=== PATIENT | male | born 1965 | race Caucasian/White ===

== ENCOUNTER 2024-07-16 13:03 | Observation (INO) | payer OTHER ==
[2024-07-16] MEDS ORDERED: LORazepam 2 MG/ML INJ IV PRN ×3 (13:05)
[2024-07-16] MEDS ORDERED: LORazepam 1 MG TAB PO PRN (13:05)
[2024-07-16] MEDS ORDERED: LORazepam 0.5 MG TAB PO PRN (13:05)
--- NOTE | 2024-07-16 13:07 | ED ---
Alcohol HPI - General Stated Complaint: ETOH Time Seen by Provider: 07/16/24 13:05 Source: RN notes reviewed, old records reviewed Mode of arrival: EMS Limitations: altered mental status - History of Present Illness Initial Comments: This is a 58-year-old male with severe intoxication. Patient is brought in by EMS as he was found unresponsive MD Complaint: alcohol intoxication Last Drink: just [employer] -: minute(s) Previous Visits for Alcohol Intoxication?: Yes Recent Trauma: Yes Associated Symptoms: denies other symptoms Treatments Prior to Arrival: none Chronic Alcohol Use: Yes - Related Data Home Medications Medication Instructions Recorded Confirmed Atorvastatin [Lipitor] 10 mg PO DAILY 07/16/24 07/16/24 FLUoxetine HCL [PROzac] 40 mg PO DAILY 07/16/24 07/16/24 Multivitamin W/Folic Acid 400mcg 1 tab PO DAILY 07/16/24 07/16/24 Previous Rx's Medication Instructions Recorded Folic Acid 1 mg PO DAILY tab 07/18/24 HYDROcodone/APAP 5-325MG [[place] 1 each PO Q6HR PRN #6 tab 07/18/24 5-325] INSULIN ASPART (NovoLOG) [NovoLOG 0 unit SQ ACHS each 07/18/24 (formulary)] INSULIN ASPART (NovoLOG) [NovoLOG 10 unit SQ AC-TID each 07/18/24 (formulary)] LORazepam [Ativan] 1 mg PO Q4HR PRN #6 tab 07/18/24 Multivitamins, Thera [Multivitamin 1 each PO DAILY tab 07/18/24 (formulary)] chlordiazePOXIDE HCl [Librium] 10 mg PO TID #11 cap 07/18/24 Allergies Allergy/AdvReac Type Severity Reaction Status Date / Time No Known Allergies Allergy Verified 07/16/24 16:10 Review of Systems ROS Statement: Those systems with pertinent positive or pertinent negative responses have been documented in the HPI. ROS Other: All systems not noted in ROS Statement are negative. Past Medical History - Past Family History Father History Unknown: Yes General Exam General appearance: alert, in no apparent distress, appears intoxicated Head exam: Present: atraumatic, normocephalic, normal inspection Eye exam: Present: normal appearance, PERRL, EOMI. Absent: scleral icterus, conjunctival injection, periorbital swelling ENT exam: Present: normal exam, mucous membranes moist Neck exam: Present: normal inspection. Absent: tenderness, meningismus, lymphadenopathy Respiratory exam: Present: normal lung sounds bilaterally. Absent: respiratory distress, wheezes, rales, rhonchi, stridor Cardiovascular Exam: Present: regular rate, normal rhythm, normal heart sounds. Absent: systolic murmur, diastolic murmur, rubs, gallop, clicks GI/Abdominal exam: Present: soft, normal bowel sounds. Absent: distended, tenderness, guarding, rebound, rigid Extremities exam: Present: normal inspection, full ROM, normal capillary refill. Absent: tenderness, pedal edema, joint swelling, calf tenderness Back exam: Present: normal inspection Neurological exam: Present: alert, oriented X3, CN II-XII intact Psychiatric exam: Present: normal affect, normal mood Skin exam: Present: warm, dry, intact, normal color. Absent: rash Course Vital Signs 07/16/24 07/16/24 07/16/24 13:10 15:48 17:24 Temperature 98 F 98 F Pulse Rate 69 70 78 Respiratory 18 18 18 Rate Blood Pressure 110/72 101/65 134/78 O2 Sat by Pulse 95 95 94 L Oximetry - Reevaluation(s) Reevaluation #1: 07/16/24 13:07 Medical records reviewed Reevaluation #2: 07/16/24 14:18 No change in symptoms here in the ER Reevaluation #3: 07/16/24 14:18 Patient informed of results and questions answered Reevaluation #4: Was pt. sent in by a medical professional or institution (, PA, ADMISSION NURSE, urgent care, hospital, or correction...) When possible be specific @ -no Did you speak to anyone other than the patient for history (EMS, parent, family, police, friend...)? What history was obtained from this source @ -no Did you review nursing and triage notes (agree or disagree)? Why? @ -agree Are old charts reviewed (outside hosp., previous admission, EMS record, old EKG, old radiological studies, urgent care reports/EKG's, correction records)? Report findings @ -yes Differential Diagnosis (chest pain, altered mental status, abdominal pain women, abdominal pain men, vaginal bleeding, weakness, fever, dyspnea, syncope, headache, dizziness, GI bleed, back pain, seizure, CVA, palpatations, mental health, musculoskeletal)? @ -prior EKG interpreted by me (3pts min.). @ -no X-rays interpreted by me (1pt min.). @ -no CT interpreted by me (1pt min.). @ -Yes negative for acute disease U/S interpreted by me (1pt. min.). @ -no What testing was considered but not performed or refused? (CT, X-rays, U/S, labs)? Why? @ -none What meds were considered but not given or refused? Why? @ -none Did you discuss the management of the patient with other professionals (professionals i.e. Dr., PA, ADMISSION NURSE, lab, RT, psych nurse, social worker school, egg packer, teacher, transportation security officer, case reviewer)? Give summary @ -no Was smoking cessation discussed for >3mins.? @ -no Was critical care preformed (if so, how long)? @ -no Were there social determinants of health that impacted care today? How? (Homelessness, low income, unemployed, alcoholism, drug addiction, transportation, low edu. Level, literacy, decrease access to med. care, fdc, rehab)? @ -none Was there de-escalation of care discussed even if they declined (Discuss DNR or withdrawal of care, Hospice)? DNR status @ -no What co-morbidities impacted this encounter? (DM, HTN, Smoking, COPD, CAD, Cancer, CVA, ARF, Chemo, Hep., AIDS, mental health diagnosis, sleep apnea, morbid obesity)? @ -none Was patient admitted / discharged? Hospital course, mention meds given and route, prescriptions, significant lab abnormalities, going to OR and other pertinent info. @ - 58 male will be admitted for significant and severe alcohol intoxication Admitted Undiagnosed new problem with uncertain prognosis? @ -no Drug Therapy requiring intensive monitoring for toxicity (Heparin, Nitro, Insulin, Cardizem)? @ -no Were any procedures done? @ -no Diagnosis/symptom? @ -Alcohol intoxication Acute, or Chronic, or Acute on Chronic? @ -Acute Uncomplicated (without systemic symptoms) or Complicated (systemic symptoms)? @ -Complicated Side effects of treatment? @ -no Exacerbation, Progression, or Severe Exacerbation? @ -exacerbation Poses a threat to life or bodily function? How? (Chest pain, USA, AR, pneumonia, PE, COPD, DKA, ARF, appy, cholecystitis, CVA, Diverticulitis, Homicidal, Suicidal, threat to staff... and all critical care pts) @ -yes severe intoxication Reevaluation #5: Differential Altered Mental Status: Hypoglycemia, DKA, hypercapnia, ETOH, overdose, CO poisoning, trauma, myxedema coma, HTN encephalopathy, infection, encephalitis, psychosis, intercranial hemorrhage, hepatic encephalopathy, meningitis, CVA, this is not meant to be an all-inclusive list Medical Decision Making - Medical Decision Making 58 male will be admitted for significant and severe alcohol intoxication - Lab Data Result diagrams: 07/16/24 13:28 07/17/24 09:27 Lab Results 07/16/24 07/16/24 Range/Units 13:28 13:28 WBC 7.4 (3.8-10.6) k/uL RBC 4.08 L (4.30-5.90) m/uL Hgb 13.3 (13.0-17.5) gm/dL Hct 40.1 (39.0-53.0) % MCV 98.3 (80.0-100.0) fL MCH 32.7 (25.0-35.0) pg MCHC 33.3 (31.0-37.0) g/dL RDW 14.7 (11.5-15.5) % Plt Count 181 (150-450) k/uL MPV 7.7 Neutrophils % 71 % Lymphocytes % 21 % Monocytes % 4 % Eosinophils % 2 % Basophils % 1 % Neutrophils # 5.3 (1.3-7.7) k/uL Lymphocytes # 1.5 (1.0-4.8) k/uL Monocytes # 0.3 (0-1.0) k/uL Eosinophils # 0.1 (0-0.7) k/uL Basophils # 0.1 (0-0.2) k/uL Sodium 144 (137-145) mmol/L Potassium 3.8 (3.5-5.1) mmol/L Chloride 107 (98-107) mmol/L Carbon Dioxide 18 L (22-30) mmol/L Anion Gap 19 mmol/L BUN 10 (9-20) mg/dL Creatinine 0.51 L (0.66-1.25) mg/dL Est GFR (CKD-EPI)AfAm >90 (>60 ml/min/1.73 sqM) Est GFR (CKD-EPI)NonAf >90 (>60 ml/min/1.73 sqM) Glucose 113 H (74-99) mg/dL Calcium 9.2 (8.4-10.2) mg/dL Phosphorus 3.6 (2.5-4.5) mg/dL Magnesium 1.5 L (1.6-2.3) mg/dL Total Bilirubin 1.0 (0.2-1.3) mg/dL AST 82 H (17-59) U/L ALT 59 H (4-49) U/L Alkaline Phosphatase 219 H (38-126) U/L Total Protein 7.7 (6.3-8.2) g/dL Albumin 4.6 (3.5-5.0) g/dL Lipase 98 (23-300) U/L Serum Alcohol 419 H* mg/dL - Radiology Data Radiology results: report reviewed (CT brain C-spine negative for acute disease), image reviewed Disposition Clinical Impression: Alcoholic intoxication Disposition: ADMITTED IP TO THIS HOSP Condition: Fair Is patient prescribed a controlled substance at d/c from ED?: No Time of Disposition: 14:00
[2024-07-16] MEDS: SODIUM CHLORIDE 0.9% 1,000 ML IV STA (13:22)
[2024-07-16] MEDS: SODIUM CHLORIDE 0.9% 500 ML 500 ML IV STA (13:22)
[2024-07-16 13:40] LABS: Basophils # (A) 0.1 k/uL (0-0.2); Basophils % (A) 1 %; Eosinophils # (A) 0.1 k/uL (0-0.7); Eosinophils % (A) 2 %; HCT 40.1 % (39.0-53.0); HGB 13.3 gm/dL (13.0-17.5); Lymphocytes # (A) 1.5 k/uL (1.0-4.8); Lymphocytes % (A) 21 %; MCH 32.7 pg (25.0-35.0); MCHC 33.3 g/dL (31.0-37.0); MCV 98.3 fL (80.0-100.0); Mean Platelet Volume 7.7; Monocytes # (A) 0.3 k/uL (0-1.0); Monocytes % (A) 4 %; Neutrophils # (A) 5.3 k/uL (1.3-7.7); Neutrophils % (A) 71 %; Platelet Count 181 k/uL (150-450); RBC 4.08 m/uL (4.30-5.90); RDW 14.7 % (11.5-15.5); WBC 7.4 k/uL (3.8-10.6)
[2024-07-16 14:00] LABS: ALT 59 U/L (4-49); AST 82 U/L (17-59); African American GFR (CKD) >90 (>60 ml/min/1.73 sqM); Albumin 4.6 g/dL (3.5-5.0); Alkaline Phosphatase 219 U/L (38-126); Anion Gap 19 mmol/L; Blood Urea Nitrogen 10 mg/dL (9-20); Calcium 9.2 mg/dL (8.4-10.2); Carbon Dioxide 18 mmol/L (22-30); Chloride 107 mmol/L (98-107); Glucose 113 mg/dL (74-99); Lipase 98 U/L (23-300); Magnesium 1.5 mg/dL (1.6-2.3); Non-African American GFR(CKD) >90 (>60 ml/min/1.73 sqM); Phosphorus 3.6 mg/dL (2.5-4.5); Potassium 3.8 mmol/L (3.5-5.1); Sodium 144 mmol/L (137-145); Total Protein 7.7 g/dL (6.3-8.2)
--- NOTE | 2024-07-16 14:05 | CT ---
EXAMINATION TYPE: CT brain cspine wo con CT DLP: 1431 mGycm, Automated exposure control for dose reduction was used. DATE OF EXAM: 07/16/2024 1:52 PM COMPARISON: None.. CLINICAL INDICATION:Male, 58 years old with history of ams; AMS and ETOH TECHNIQUE: Brain: Multiple axial CT images of the brain were obtained without IV contrast. Cspine: Axial CT images from the skull base to the inferior aspect of T2 we obtained without intraven ous contrast. Coronal and sagittal reformatted images were also reviewed. FINDINGS: Brain: Extra-axial spaces: No abnormal extra-axial fluid collections. Ventricular system: Within normal limits Cerebral parenchyma: Mild diffuse cerebral atrophy. No acute intraparenchymal hemorrhage or mass effe ct. The witt-white junction is well differentiated. Scattered hypoattenuating areas are seen within the periventricular white matter. Bilateral inferior basal ganglia prominent perivascular spaces. Cerebellum: Unremarkable. Mass effect: No evidence of midline shift. Intracranial vasculature: unremarkable Soft tissues: Normal. Calvarium/osseous structures: No depressed skull fracture. Paranasal sinuses and mastoid air cells: Clear. Visualized orbits: Orbital contents are intact. Cervical spine: Fracture: None. Osseous structures: Multilevel degenerative disc disease changes with endplate spurring and disc oste ophyte complex's. Vertebral alignment: Within normal limits. Spinal canal/Neural Foramina: Broad-based disc bulge at C4-C5 with minimal effacement of the anterior thecal sac. Posterior disc osteophyte complex at C6-C7 with mild effacement of anterior thecal sac. No evidence for significant neural foraminal stenosis. Neck soft tissues: Prevertebral soft tissues are within normal limits. Other: The airway is patent. The lung apices are clear. Left carotid bulb calcifications. IMPRESSION: 1. No acute intracranial process. 2. Nonspecific white matter changes, likely secondary to chronic small vessel ischemic disease. 3. No evidence of cervical spine fracture. 4. Mild multilevel degenerative disc disease. [facility], , 07/16/2024 2:03 PM
--- NOTE | 2024-07-16 14:06 | P.HPIM ---
History of Present Illness 58-year-old male was brought in because of severe alcohol intoxication with breathalyzer regarding above 400 alcohol level is still pending at this time. Patient is arousable and able to answer some of my questions although quite a bi t intoxicated patient did not clearly answer hematopathology drinks but has been drinking and willing to quit alcohol and is supposed to go to alcohol rehabilitation program as patient is intoxicated not much of the information is available unknown whether patient takes any medications at home REVIEW OF SYSTEMS: All other systems are negative except those mentioned in the HPI PHYSICAL EXAMINATION: GENERAL: Patient can talk about quite a bit intoxicated and slurring speech secondary to intoxication HEENT: Pupils are round and equally reacting to light. EOMI. No scleral icterus. No conjunctival pallor. Normocephalic, atraumatic. No pharyngeal erythema. No thyromegaly. CARDIOVASCULAR: S1 and S2 present. No murmurs, rubs, or gallops. PULMONARY: Chest is clear to auscultation, no wheezing or crackles. ABDOMEN: Soft, nontender, nondistended, normoactive bowel sounds. No palpable organomegaly. MUSCULOSKELETAL: No joint swelling or deformity. EXTREMITIES: No cyanosis, clubbing, or pedal edema. NEUROLOGICAL: Alcohol intoxicated alcohol intoxicated SKIN: No rashes. Assessment and plan Alcohol intoxication patient will be monitored IV fluids, social work consultation -Alcohol withdrawal: Patient is on Ativan CIWA protocol seizure precautions -GI prophylaxis with Protonix/Pepcid DVT prophylaxis: Lovenox Past Medical History Past Medical History: No Reported History History of Any Multi-Drug Resistant Organisms: None Reported Past Surgical History: No Surgical Hx Reported Past Psychological History: No Psychological Hx Reported Past Alcohol Use History: Abuse, Daily, Heavy Past Drug Use History: None Reported Medications and Allergies Allergies Allergy/AdvReac Type Severity Reaction Status Date / Time No Known Allergies Allergy Verified 07/16/24 13:12 Physical Exam Vitals: Vital Signs Temp Pulse Resp BP Pulse Ox 07/16/24 13:10 98 F 69 18 110/72 95 Intake and Output 07/15/24 07/16/24 07/16/24 22:59 06:59 14:59 Other: Weight 81.647 kg Results CBC & Chem 7: 07/16/24 13:28 Labs: Abnormal Lab Results - Last 24 Hours (Table) 07/16/24 Range/Units 13:28 RBC 4.08 L (4.30-5.90) m/uL
[2024-07-16 14:12] LABS: Alcohol 419 mg/dL
[2024-07-16] MEDS ORDERED: NALOXONE 0.4 MG/ML 1 ML VIAL IV PRN (14:17)
[2024-07-16] MEDS ORDERED: ONDANSETRON 4 MG/2 ML VIAL IVP PRN (14:17)
[2024-07-16] MEDS: DEXTROSE 5%-0.45% NACL 1,000 ML IV SCH (15:49)
[2024-07-16] MEDS ORDERED: HYDROcodone/APAP 5-325MG 1 EACH TAB PO PRN (20:48)
[2024-07-16] MEDS: HYDROcodone/APAP 5-325MG 1 EACH TAB PO PRN (21:53)
[2024-07-17] MEDS: KETOROLAC 15 MG/ML 1 ML VIAL IVP STA (00:40)
[2024-07-17] MEDS: LORazepam 1 MG TAB PO PRN (07:57)
[2024-07-17] MEDS: FOLIC ACID 1 MG TAB PO SCH (07:57)
[2024-07-17] MEDS: MULTIVITAMINS, THERA 1 EACH TAB PO SCH (07:57)
[2024-07-17 09:57] LABS: ALT 50 U/L (4-49); AST 73 U/L (17-59); African American GFR (CKD) >90 (>60 ml/min/1.73 sqM); Albumin 3.5 g/dL (3.5-5.0); Albumin/Globulin Ratio 1.3; Alkaline Phosphatase 199 U/L (38-126); Anion Gap 7 mmol/L; Blood Urea Nitrogen 10 mg/dL (9-20); Calcium 8.3 mg/dL (8.4-10.2); Carbon Dioxide 25 mmol/L (22-30); Chloride 103 mmol/L (98-107); Globulin 2.8 g/dL; Glucose 278 mg/dL (74-99); Magnesium 1.2 mg/dL (1.6-2.3); Non-African American GFR(CKD) >90 (>60 ml/min/1.73 sqM); Potassium 3.9 mmol/L (3.5-5.1); Sodium 135 mmol/L (137-145); Total Bilirubin 0.8 mg/dL (0.2-1.3); Total Protein 6.3 g/dL (6.3-8.2)
[2024-07-17] MEDS ORDERED: Magnesium Replacement Protocol 1 EACH MISC MISCELLANE PRN (13:08)
[2024-07-17] MEDS: MAGNESIUM SULFATE-D5W PMX 1 GM in DEXTROSE/WATER 1 100ML.BAG IVPB SCH (14:10)
[2024-07-17 20:56] LABS: Glucose,Whole Blood 299 mg/dL (70-110)
[2024-07-17] MEDS ORDERED: DEXTROSE 50% SYRINGE 50 ML IVP PRN ×2 (21:34)
[2024-07-18 02:46] VITALS: RESP 16
[2024-07-18] MEDS: SODIUM CHLORIDE 0.9% 1,000 ML IV SCH (03:38)
--- NOTE | 2024-07-18 03:43 | P.PN ---
Subjective Progress Note Date: 07/17/24 History of Present Illness 58-year-old male was brought in because of severe alcohol intoxication with breathalyzer regarding above 400 alcohol level is still pending at this time. Patient is arousable and able to answer some of my questions although quite a bit intoxicated patient did not clearly answer hematopathology drinks but has been drinking and willing to quit alcohol and is supposed to go to alcohol rehabilitation program as patient is intoxicated not much of the information is available unknown whether patient takes any medications at home 07/17/2024 Patient is seen and evaluated in follow-up this morning extremely shaky on exam and lethargic although arousable. Patient will continue on CIWA protocol and also will initiate Librium taper. Patient reports plan to is to go to [facility] for continued alcohol rehab. Will continue to hydrate and replace electrolytes per protocol, monitor overnight for any worsening withdrawals. Encouraged the patient increase activity as tolerated with frequent walks. Probable discharge to rehab in 24 hours Review of systems: Constitutional: No reports of fatigue, fever, or chills Cardiovascular: No reports of chest pain or palpitations Respiratory: No reports of shortness of breath or cough GI: No reports of nausea, vomiting, or diarrhea : No reports of dysuria or retention Neurovascular: reports of generalized weakness and unsteady gait All other systems are negative except those mentioned in the HPI PHYSICAL EXAMINATION: GENERAL: This is a 58-year-old male who is lethargic although arousable, alert and oriented x 3, well-developed, appears older than stated age HEENT: Pupils are round and equally reacting to light. EOMI. No scleral icterus. No conjunctival pallor. Normocephalic, atraumatic. No pharyngeal erythema. No thyromegaly. CARDIOVASCULAR: S1 and S2 present. No murmurs, rubs, or gallops. PULMONARY: Chest is clear to auscultation, no wheezing or crackles. ABDOMEN: Soft, nontender, nondistended, normoactive bowel sounds. No palpable organomegaly. MUSCULOSKELETAL: No joint swelling or deformity. EXTREMITIES: No cyanosis, clubbing, or pedal edema. NEUROLOGICAL: Alcohol intoxicated alcohol intoxicated SKIN: No rashes. Assessment and plan Alcohol intoxication patient will be monitored IV fluids, social work consultation -Alcohol withdrawal: Patient is on Ativan CIWA protocol seizure precautions -Falls with facial laceration on the right ear and face status post fall, head and neck CT negative for acute process -GI prophylaxis with Protonix/Pepcid -DVT prophylaxis: Lovenox -Full code Plan: Patient will be monitored overnight maintained on CIWA protocol and will add Librium taper Patient instructed to contact [facility] for intake appointment and scheduled for 07/18/2024 Continue local wound care to the right ear status post suture placement in the ER. Patient will require suture removal in 10 days Continue gentle hydration and replace electrolytes per protocol Follow-up on repeat labs in the a.m. and patient will be discharged to inpatient alcohol rehab at [facility] in the next 24 hours. The impression and plan of care has been dictated by Bev Sanders, Nurse Practitioner as directed. Dr. Bar MD I have performed a history and examination and MDM of this patient, discussed the same with the dictator, and agree with the dictator's assessment and plan as written ,documented as a scribe. Based on total visit time, I have performed more than 50% of the visit. Objective - Vital Signs Vital signs: Vital Signs Temp 99.0 F 07/17/24 07:00 Pulse 63 07/17/24 07:00 Resp 16 07/17/24 07:00 BP 126/73 07/17/24 07:00 Pulse Ox 97 07/17/24 07:00 FiO2 Intake & Output 07/16/24 07/17/24 07/17/24 18:59 06:59 18:59 Intake Total 960 Output Total 350 Balance 610 Weight 81.647 kg 81.647 kg Intake: Intake, IV Titration 960 Amount Dextrose 5%-0.45% NaCl 1, 960 000 ml @ 80 mls/hr IV . [id number] [facility], [facility]–1983 Rx#:[id number] Output: Urine 350 Other: Voiding Method Urinal - Labs CBC & Chem 7: 07/16/24 13:28 07/17/24 09:27 Labs: Abnormal Lab Results - Last 24 Hours (Table) 07/16/24 07/16/24 Range/Units 13:28 13:28 RBC 4.08 L (4.30-5.90) m/uL Carbon Dioxide 18 L (22-30) mmol/L Creatinine 0.51 L (0.66-1.25) mg/dL Glucose 113 H (74-99) mg/dL Magnesium 1.5 L (1.6-2.3) mg/dL AST 82 H (17-59) U/L ALT 59 H (4-49) U/L Alkaline Phosphatase 219 H (38-126) U/L Serum Alcohol 419 H* mg/dL
[2024-07-18 06:52] LABS: Glucose,Whole Blood 230 mg/dL (70-110)
[2024-07-18] MEDS: INSULIN ASPART (NovoLOG) 100 UNIT/ML VIAL SQ SCH ×2 (07:00→07:01)
[2024-07-18 07:04] VITALS: BP 122/71; PULSE 64; TEMP 98.4
[2024-07-18] MEDS: ATORVASTATIN 10 MG TAB PO SCH (08:55)
[2024-07-18] MEDS: FLUoxetine HCL 20 MG CAP PO SCH (08:55)
[2024-07-18] MEDS: LORazepam 1 MG TAB PO PRN (08:59)
[2024-07-18 11:19] LABS: Glucose,Whole Blood 200 mg/dL (70-110)
--- NOTE | 2024-07-20 08:30 | P.DS ---
Providers Date of admission: 07/16/24 14:18 Expected date of discharge: 07/17/24 Attending physician: Caitlin Lopez Primary care physician: Stated None Hospital Course: Final diagnosis -Alcohol intoxication -Alcohol withdrawal: Patient is on Ativan CIWA protocol seizure precautions -Falls with facial laceration on the right ear and face status post fall, head and neck CT negative for acute process -GI prophylaxis with Protonix/Pepcid -DVT prophylaxis: Lovenox -Full code Discharge disposition Patient is being discharged in a stable condition with guarded prognosis to inpatient alcohol [place]. Patient will follow-up with primary care provider in the outpatient setting upon discharge. Patient is to continue with as needed Ativan and Librium taper as scheduled. Total time taken is greater than 35 minutes. Hospital course This is a 58-year-old male who was recently admitted with acute alcohol intoxication with concerns of alcohol withdrawal being closely monitored on CIWA protocol. Patient also with a facial laceration on the right ear status post fall from intoxication with sutures placed in the ER. Patient will need removal of sutures at his PCPs office in 10 days. Patient with significant alcohol withdrawal maintained on CIWA protocol with Ativan and Librium taper was initiated. Patient will continue Librium taper on discharge. Currently no reports of chest pain, shortness of breath, or palpitations. Patient is afebrile. No reports of nausea or vomiting and patient is tolerating diet. Patient will be going to [place] for inpatient alcohol rehab. Physical exam: Gen: This is a 58-year-old male who is awake, alert and oriented x 3, well- developed, elderly appearing HEENT: Head is atraumatic, normocephalic. Pupils equal, round. Sclerae is anicteric. NECK: Supple. No JVD. No lymphadenopathy. No thyromegaly. LUNGS: Clear to auscultation. No wheezes or rhonchi. No intercostal retractions. HEART: Regular rate and rhythm. No murmur. ABDOMEN: Soft. Bowel sounds are present. No masses. No tenderness. EXTREMITIES: No pedal edema. No calf tenderness. NEUROLOGICAL: Patient is awake, alert and oriented x3. Cranial nerves 2 through 12 are grossly intact. Please refer to medication reconciliation sheet for a list of medications. The impression and plan of care has been dictated by Bev Sanders, Nurse Practitioner as directed. Dr. Bar MD I have performed a history and examination and MDM of this patient, discussed the same with the dictator, and agree with the dictator's assessment and plan as written ,documented as a scribe. Based on total visit time, I have performed more than 50% of the visit. Patient Condition at Discharge: Fair Plan - Discharge Summary Discharge Rx Participant: No New Discharge Prescriptions: New chlordiazePOXIDE HCl [Librium] 10 mg PO TID #11 cap INSULIN ASPART (NovoLOG) [NovoLOG (formulary)] 10 unit SQ AC-TID each LORazepam [Ativan] 1 mg PO Q4HR PRN #6 tab PRN Reason: Ciwa 6 To 7 Folic Acid 1 mg PO DAILY tab Multivitamins, Thera [Multivitamin (formulary)] 1 each PO DAILY tab HYDROcodone/APAP 5-325MG [[place] 5-325] 1 each PO Q6HR PRN #6 tab PRN Reason: Pain INSULIN ASPART (NovoLOG) [NovoLOG (formulary)] 0 unit SQ ACHS each Continue Multivitamin W/Folic Acid 400mcg 1 tab PO DAILY FLUoxetine HCL [PROzac] 40 mg PO DAILY Atorvastatin [Lipitor] 10 mg PO DAILY Discontinued Potassium Chloride 10 meq PO DAILY Insulin NPH Human Isophane [NovoLIN N Flexpen] 12 - 15 units SQ AC-TID Furosemide [Lasix] 20 mg PO DAILY Discharge Medication List Atorvastatin [Lipitor] 10 mg PO DAILY 07/16/24 [History] FLUoxetine HCL [PROzac] 40 mg PO DAILY 07/16/24 [History] Multivitamin W/Folic Acid 400mcg 1 tab PO DAILY 07/16/24 [History] Folic Acid 1 mg PO DAILY tab 07/18/24 [Rx] HYDROcodone/APAP 5-325MG [[place] 5-325] 1 each PO Q6HR PRN #6 tab 07/18/24 [Rx] INSULIN ASPART (NovoLOG) [NovoLOG (formulary)] 0 unit SQ ACHS each 07/18/24 [Rx] INSULIN ASPART (NovoLOG) [NovoLOG (formulary)] 10 unit SQ AC-TID each 07/18/24 [Rx] LORazepam [Ativan] 1 mg PO Q4HR PRN #6 tab 07/18/24 [Rx] Multivitamins, Thera [Multivitamin (formulary)] 1 each PO DAILY tab 07/18/24 [Rx] chlordiazePOXIDE HCl [Librium] 10 mg PO TID #11 cap 07/18/24 [Rx] Follow up Appointment(s)/Referral(s): Gracie Viera MD [STAFF PHYSICIAN] - 1 Week (Please call for follow-up appointment.) Activity/Diet/Wound Care/Special Instructions: Patient is going to [place] Activity as tolerated Continue Librium taper Continue Ativan as needed Follow-up with primary care provider on discharge Continue to avoid all alcohol intake Continue with heart healthy diabetic diet Continue Accu-Cheks before meals and at bedtime and sliding scale NovoLog sliding scale 0-150 equals 0 units 151-200 equals 2 units 201-250 equals 4 units 251-300 equals 6 units 301-350 equals 8 units 351-400 equals 10 units Please notify provider if blood sugar is 400 or above Discharge/Stand Alone Forms: AA Meetings [place], [facility], [facility], Community Resources, Outpatient Counseling, Inp Substance Abuse Facilities Discharge Disposition: OTHER INSTITUTION NOT DEFINED
--- NOTE | 2024-08-07 13:28 | CDI ---
Dear Dr. Beavers, Please specify if the laceration repair was done in the ED and if so provide the procedure report including the size and whether it was simple, intermeidate or complex. Thank you! SUSAN
--- NOTE | 2024-08-12 16:48 | CDI ---
Dr. Nuno, Per Discharge Summary documentation, patient with laceration on the right ear with sutures placed in the ER. If this laceration was sutured on this visit, please add documentation including length and type of repair. Thank you, Zofia DAVIS
== END 2024-07-18 15:01 | disposition other institution (70) ==
LOC: EC 13:03 → 6NMEDSUR 14:18 → 1SOBS 16:40 → 4SSUR 21:38
PROVIDERS: ADMIT Hospitalist; ATTEND Hospitalist
DX: S01.311A Laceration without foreign body of right ear, initial encounter (principal); W19.XXXA Unspecified fall, initial encounter; F10.139 Alcohol abuse with withdrawal, unspecified; F10.129 Alcohol abuse with intoxication, unspecified; Y90.8 Blood alcohol level of 240 mg/100 ml or more; Z79.899 Other long term (current) drug therapy
CPT/HCPCS: 96361 ×2; 96365; 96366; 96375; 99284; 36415; 80053 ×2; 83690; 83735 ×3; 84100; 85025; 83036; 72125; 70450; G0378 ×4; G0480; J3475; J1885; 80320